=== PATIENT | female | born 1960 | race Caucasian/White ===

== ENCOUNTER 2020-07-30 11:30 | Emergency (ER) | payer MEDICAID, OTHER ==
[~2020-07-30] VITALS: Ht 154.9 cm; Wt 57.5 kg
[2020-07-30] MEDS ORDERED: LEVO88TA3 (11:38)
[2020-07-30] MEDS ORDERED: LEVO75TA4 (11:38)
[2020-07-30 12:22] LABS: BASO # 0.1 10^3/uL (0.0-0.2); EOS # 0.1 10^3/uL (0.0-0.5); EOS % 1.3 % (0.0-3.0); HEMATOCRIT 39.9 % (36.0-47.0); HEMOGLOBIN 13.3 g/dl (12.0-15.5); LYMPH # 1.4 10^3/uL (1.5-5.0); MEAN CORPUSCULAR HEMOGLOBIN 30.1 pg (27.0-33.0); MEAN CORPUSCULAR HGB CONC 33.3 g/dl (32.0-36.5); MEAN CORPUSCULAR VOLUME 90.3 fl (80.0-96.0); MONO # 0.5 10^3/uL (0.0-0.8); MONO % 6.7 % (0.0-5.0); NEUTROPHILS # 4.8 10^3/uL (1.5-8.5); NEUTROPHILS % 70.9 % (36.0-66.0); PLATELET COUNT, AUTOMATED 324 10^3/uL (150-450); RED BLOOD COUNT 4.42 10^6/uL (4.00-5.40); WHITE BLOOD COUNT 6.7 10^3/uL (4.0-10.0)
[2020-07-30 12:56] LABS: ALBUMIN 3.8 GM/DL (3.2-5.2); ALT/SGPT 22 U/L (12-78); BILIRUBIN,DIRECT < 0.1 MG/DL (0.0-0.2); BILIRUBIN,TOTAL 0.5 MG/DL (0.2-1.0); BLOOD UREA NITROGEN 8 MG/DL (7-18); CALCIUM LEVEL 8.8 MG/DL (8.5-10.1); CARBON DIOXIDE LEVEL 27 MEQ/L (21-32); CHLORIDE LEVEL 105 MEQ/L (98-107); CREATININE FOR GFR 0.74 MG/DL (0.55-1.30); GLOMERULAR FILTRATION RATE > 60.0 (>51); GLUCOSE, FASTING 100 MG/DL (70-100); LIPASE 78 U/L (73-393); POTASSIUM SERUM 4.6 MEQ/L (3.5-5.1); SODIUM LEVEL 137 MEQ/L (136-145)
--- NOTE | 2020-07-30 13:05 | REPVR ---
PROCEDURE INFORMATION: Exam: XR Right Hip with Pelvis when Performed Exam date and time: 07/30/2020 12:56 PM Age: 60 years old Clinical indication: Hip pain; Right hip TECHNIQUE: Imaging protocol: XR Right hip with pelvis when performed. Views: 2 or 3 views. COMPARISON: No relevant prior studies available. FINDINGS: Bones/joints: No acute osseous pathology in the right hip. Anatomic alignment. Soft tissues: Unremarkable soft tissues. IMPRESSION: No acute osseous pathology in the right hip. Electronically signed by: Carlos Hart On 07/30/2020 13:05:17 PM
--- NOTE | 2020-07-30 13:58 | REPVR ---
PROCEDURE INFORMATION: Exam: CT Abdomen And Pelvis With Contrast Exam date and time: 07/30/2020 1:30 PM Age: 60 years old Clinical indication: Abdominal pain; Additional info: Rectal bleeding/rlq pain TECHNIQUE: Imaging protocol: Computed tomography of the abdomen and pelvis with intravenous contrast. Radiation optimization: All CT scans at this facility use at least one of these dose optimization techniques: automated exposure control; mA and/or kV adjustment per patient size (includes targeted exams where dose is matched to clinical indication); or iterative reconstruction. Contrast material: ISO 370; Contrast volume: 100 ml; Contrast route: INTRAVENOUS (IV); COMPARISON: None FINDINGS: Lungs: Dependent bibasilar airspace disease and mild interstitial prominence. Liver: Punctate hypodensities in the left hepatic lobe which are too small to accurately characterize. Gallbladder and bile ducts: No cholelithiasis or biliary ductal dilatation. Pancreas: Borderline pancreatic ductal dilatation without focal mass. Spleen: No splenomegaly. Adrenals: Bilateral adrenal nodularity. Kidneys and ureters: Normal renal morphology. No hydronephrosis. Stomach and bowel: Wall thickening in the nondistended stomach. Mild small bowel dilatation without a transition zone. Diverticulosis, without pericolonic inflammation. Appendix: No acute appendicitis. Intraperitoneal space: No significant free fluid. Vasculature: Normal caliber of the abdominal aorta. Vascular calcification. Asymmetric dilatation of the left parauterine veins. Lymph nodes: No pathologically enlarged lymph nodes. Bladder: Normal bladder morphology prior Reproductive: Uterine fibroids, including a 2.0 cm left uterine fibroid. Bones/joints: Degenerative change and disc bulging. Schmorl's nodes . Soft tissues: Small fat containing umbilical hernia. IMPRESSION: 1. Wall thickening in the nondistended stomach. 2. Diverticulosis, without pericolonic inflammation. 3. Additional findings as described above. Electronically signed by: Carlos Hart On 07/30/2020 13:58:27 PM
[2020-07-30 15:31] VITALS: BP 147/70
[2020-07-30] MEDS ORDERED: PANT40TA29 PO (15:42)
[2020-07-30] MEDS ORDERED: CARA1TAB6 PO (15:42)
[2020-07-30] MEDS ORDERED: TRAM50TA2 PO ×2 (15:42→15:47)
[2020-07-31] MEDS ORDERED: TRAM50TA2 PO (09:11)
--- NOTE | 2020-07-31 10:47 | ED PDOC ---
Post-Departure Follow-Up dr humphries faxed formal report of ct abd/p for fu Sagrario Armando MD Jul 31, 2020 10:47
== END 2020-07-30 16:06 | disposition home or self-care (01) ==
LOC: M ED 11:30
DX: K29.00 Acute gastritis without bleeding (principal); K62.5 Hemorrhage of anus and rectum; M54.41 Lumbago with sciatica, right side; K57.30 Diverticulosis of large intestine without perforation or abscess without bleeding; E27.9 Disorder of adrenal gland, unspecified; D25.9 Leiomyoma of uterus, unspecified; M51.46 Schmorl's nodes, lumbar region; E03.9 Hypothyroidism, unspecified; M79.7 Fibromyalgia; F17.200 Nicotine dependence, unspecified, uncomplicated; F12.10 Cannabis abuse, uncomplicated; Z79.899 Other long term (current) drug therapy; Z88.6 Allergy status to analgesic agent; Z88.5 Allergy status to narcotic agent

== ENCOUNTER → 2023-09-13 | Outpatient (CLI) | payer OTHER ==
[~2023-09-13] MED LIST: CARA1TAB6 PO; LEVO75TA4; LEVO88TA3; PANT40TA29 PO; TRAM50TA2 PO
== END ==
LOC: M PLAIMG 13:39
PROVIDERS: ATTEND Pain Medicine Interventional Pain Medicine
DX: M51.16 Intervertebral disc disorders with radiculopathy, lumbar region (principal); M50.11 Cervical disc disorder with radiculopathy, high cervical region; M50.121 Cervical disc disorder at C4-C5 level with radiculopathy; M50.123 Cervical disc disorder at C6-C7 level with radiculopathy; M47.812 Spondylosis without myelopathy or radiculopathy, cervical region; M47.816 Spondylosis without myelopathy or radiculopathy, lumbar region; M47.817 Spondylosis without myelopathy or radiculopathy, lumbosacral region